=== PATIENT | female | born 1995 ===

== ENCOUNTER 2017-11-25 19:30 | Emergency (ER) | payer MEDICAID ==
[2017-11-25 19:53] VITALS: BP 111/67
[2017-11-25] MEDS ORDERED: Nitrofurantoin Macrocrystals* 50 MG CAP PO ONE (20:20)
--- NOTE | 2017-11-25 20:28 | UC ---
Complaint Female HPI - HPI Summary HPI Summary: Patient states that for several days she has some suprapubic discomfort and burning at the end of voiding with frequency and urgency. Denies flank pain, fever, chills. She states symptoms did not start after intercourse, she is currently in monogamous relationship and is on control pill. Denies PMH - History Of Current Complaint Chief Complaint: UCGU Stated Complaint: POSS UTI Time Seen by Provider: 11/25/17 20:03 Hx Obtained From: Patient Hx Last Menstrual Period: 10/24/17 Onset/Duration: Sudden Onset, Lasting Days Timing: Constant Severity Initially: Mild Severity Currently: Mild Pain Intensity: 2 Character: Dull, Burning Aggravating Factor(s): Urination Alleviating Factor(s): Nothing Associated Signs And Symptoms: Positive: Negative - Risk Factors Ectopic Risk Factor: Negative Ovarian Torsion Risk Factor: Negative - Allergies/Home Medications Allergies/Adverse Reactions: Allergies Allergy/AdvReac Type Severity Reaction Status Date / Time No Known Allergies Allergy Verified 11/25/17 19:46 Home Medications: Home Medications Levonorgestrel-Ethin Estradiol [Aubra] 1 tab PO DAILY 11/25/17 [History Confirmed 11/25/17] PMH/Surg Hx/FS Hx/Imm Hx Previously Healthy: Yes - Surgical History Surgical History: None - Social History Alcohol Use: None Substance Use Type: None Smoking Status (MU): Never Smoked Tobacco Review of Systems Constitutional: Negative Genitourinary: Dysuria, Frequency, Urgency All Other Systems Reviewed And Are Negative: Yes Physical Exam Triage Information Reviewed: Yes Appearance: Well-Appearing, No Pain Distress, Well-Nourished Vital Signs: Initial Vital Signs Temp 98.3 F 11/25/17 19:47 Pulse 74 11/25/17 19:47 Resp 16 11/25/17 19:47 BP 111/67 11/25/17 19:47 Pulse Ox 100 11/25/17 19:47 Vital Signs Reviewed: Yes Eyes: Positive: Conjunctiva Clear ENT: Positive: Hearing grossly normal, Pharynx normal Neck: Positive: Supple, Nontender Respiratory: Positive: Chest non-tender, Lungs clear, Normal breath sounds, No respiratory distress Cardiovascular: Positive: RRR, No Murmur, Pulses Normal, Brisk Capillary Refill Abdomen Description: Positive: Nontender, No Organomegaly, Soft, Other: - no CVAT Complaint Female Dx - Course Course Of Treatment: start medications as prescribed, macrobid 100mg po bid for 7 days, and pyridium for symptoms control, discussed with patient back up contraception with barrier methods for next cycle and abstain from intercourse during treatment. - Differential Dx/Diagnosis Provider Diagnoses: UTI Discharge - Sign-Out/Discharge Documenting (check all that apply): Discharge/Admit/Transfer - Discharge Plan Condition: Stable Disposition: HOME Prescriptions: Nitrofurantoin Monohyd/M-Cryst [Macrobid 100 mg Capsule] 100 mg PO BID 7 Days # 14 cap Phenazopyridine TAB* [Pyridium 100 mg TAB*] 100 mg PO TID PRN #3 tab PRN Reason: Pain Patient Education Materials: Phenazopyridine (By mouth), Urinary Tract Infection in Women (ED), Nitrofurantoin Macrocrystals (By mouth) Referrals: Tatiana Jones MD [Primary Care Provider] - - Billing Disposition and Condition Condition: STABLE Disposition: Home
--- NOTE | 2017-11-29 13:38 | UC ---
- Progress Note Progress Note: neg GC neg CH no change ljj 11/29/2017 Discharge - Sign-Out/Discharge Documenting (check all that apply): Post-Discharge Follow Up - Discharge Plan Condition: Stable Disposition: HOME Prescriptions: Nitrofurantoin Monohyd/M-Cryst [Macrobid 100 mg Capsule] 100 mg PO BID 7 Days # 14 cap Phenazopyridine TAB* [Pyridium 100 mg TAB*] 100 mg PO TID PRN #3 tab PRN Reason: Pain Patient Education Materials: Phenazopyridine (By mouth), Nitrofurantoin Macrocrystals (By mouth), Urinary Tract Infection in Women (ED) Referrals: Tatiana Jones MD [Primary Care Provider] - - Billing Disposition and Condition Condition: STABLE Disposition: Home
== END 2017-11-25 20:40 | disposition home or self-care (01) ==
LOC: UCEAST 19:30
DX: N39.0 Urinary tract infection, site not specified (principal)
CPT/HCPCS: 81003; 87077; 87086; 87186; 87491; 87591; 99202; A9270-GY; G0463